=== PATIENT | female | born 1960 | race Two or more races ===

== ENCOUNTER 2023-09-03 09:45 | Inpatient (IN) | payer OTHER ==
[~2023-09-03] VITALS: Ht 152.4 cm; Wt 52.2 kg
[2023-09-03] MEDS ORDERED: LOSARTAN POTASS25 MG PO (11:29)
[2023-09-03] MEDS ORDERED: LIPITOR20 MG PO (11:29)
[2023-09-03] MEDS ORDERED: HYDRODIURIL12.5 MG PO (11:29)
[2023-09-03] MEDS ORDERED: CALTRATE+D3 PL1 EAC1 PO (11:30)
[2023-09-06 13:07] LABS: HEMATOCRIT 37.3 % (36.0-45.00); HEMOGLOBIN 12.5 g/dL (12.0-15.00); MEAN CELL VOLUME 89.5 fL (80.00-100.00); MEAN CORPUSCULAR HEMOGLOBIN 29.9 pg (27.00-32.0); MEAN CORPUSCULAR HGB CONC 33.4 g/dl (32.0-36.0); PLATELET COUNT 274 K/uL (150-450); RED BLOOD COUNT 4.17 M/uL (4.00-6.00); RED CELL DISTRIBUTION WIDTH 14.3 % (11.5-14.5)
[2023-09-06 13:40] LABS: CALCIUM 9.1 mg/dL (8.5-10.1); CREATININE SERUM 0.71 mg/dL (0.55-1.02); GFR 83.14; POTASSIUM 3.59 mEq/L (3.5-5.1)
[2023-09-07 03:57] LABS: HEMATOCRIT 34.3 % (36.0-45.00); HEMOGLOBIN 11.9 g/dL (12.0-15.00); MEAN CELL VOLUME 88.9 fL (80.00-100.00); MEAN CORPUSCULAR HEMOGLOBIN 30.9 pg (27.00-32.0); MEAN CORPUSCULAR HGB CONC 34.7 g/dl (32.0-36.0); PLATELET COUNT 241 K/uL (150-450); RED BLOOD COUNT 3.86 M/uL (4.00-6.00); RED CELL DISTRIBUTION WIDTH 14.3 % (11.5-14.5)
[2023-09-07 04:17] LABS: CALCIUM 8.5 mg/dL (8.5-10.1); CREATININE SERUM 0.99 mg/dL (0.55-1.02); GFR 56.65; POTASSIUM 3.62 mEq/L (3.5-5.1)
== END 2023-09-07 12:36 | disposition home or self-care (01) | DRG 743 ==
LOC: OB/GYN 09-06 05:15 → O/R 09-06 05:15 → SURG 09-06 09:45 → OB/GYN 09-06 10:12 → SURG 09-06 12:00 → OB/GYN 09-07 12:36
PROVIDERS: Obstetrics & Gynecology; ADMIT Obstetrics & Gynecology Gynecologic Oncology; ATTEND Obstetrics & Gynecology Gynecologic Oncology
PROC: 0UT74ZZ Resection of Bilateral Fallopian Tubes, Percutaneous Endoscopic Approach (ICD-10-PCS; 2023-09-06)
PROC: 0UT24ZZ Resection of Bilateral Ovaries, Percutaneous Endoscopic Approach (ICD-10-PCS; 2023-09-06)
PROC: 07BC4ZZ Excision of Pelvis Lymphatic, Percutaneous Endoscopic Approach (ICD-10-PCS; 2023-09-06)
PROC: 3E1M48Z Irrigation of Peritoneal Cavity using Irrigating Substance, Percutaneous Endoscopic Approach (ICD-10-PCS; 2023-09-06)
PROC: 0DBU4ZX Excision of Omentum, Percutaneous Endoscopic Approach, Diagnostic (ICD-10-PCS; 2023-09-06)
PROC: 0UT94ZZ Resection of Uterus, Percutaneous Endoscopic Approach (ICD-10-PCS; principal; 2023-09-06 12:00)
DX: N80.3C2 Endometriosis of the left uterosacral ligament, unspecified depth (principal); N80.101 Endometriosis of right ovary, unspecified depth; N80.201 Endometriosis of right fallopian tube, unspecified depth; Z20.822 Contact with and (suspected) exposure to COVID-19; I10 Essential (primary) hypertension